=== PATIENT | female | born 1980 | race Caucasian/White ===

== ENCOUNTER 2020-07-31 14:00 | Inpatient (IN) | payer OTHER ==
[2020-07-31] MEDS ORDERED: ELECTROLYTE-148 SOLN 1,000 ML IV SCH (15:00)
[2020-07-31 16:14] LABS: BASO % 0.2 % (0-2.0); EOS % 0.4 % (0-4.5); HEMATOCRIT 34.5 % (32.4-45.2); HEMOGLOBIN 11.9 GM/dL (10.7-15.3); LYMPH % 15.4 % (8-40); MCH 30.1 pg (25.7-33.7); MCHC 34.4 g/dl (32.0-36.0); MEAN CELL VOLUME 87.5 fl (80-96); MEAN PLT VOLUME 9.2 fl (7.5-11.1); MONO % 4.7 % (3.8-10.2); NEUT % 79.3 % (42.8-82.8); PLATELET COUNT 122 K/MM3 (134-434); RBC 3.94 M/mm3 (3.60-5.2); RDW 14.2 % (11.6-15.6); WHITE BLOOD COUNT 12.1 K/mm3 (4.0-10.0)
[2020-07-31 16:21] VITALS: BMI 31.4
[2020-07-31 16:32] LABS: INR 1.04 (0.83-1.09); PROTHROMBIN TIME (PATIENT) 12.3 SEC (9.7-13.0)
[2020-07-31 16:35] LABS: ACTIVATED PTT 26.2 SECONDS (25.2-36.5)
[2020-07-31 16:43] LABS: BLOOD UREA NITROGEN 7.7 mg/dL (7-18); CALCIUM 8.6 mg/dL (8.5-10.1); CREATININE 0.5 mg/dL (0.55-1.3); POTASSIUM 3.8 mmol/L (3.5-5.1)
--- NOTE | 2020-07-31 16:51 | HP ---
Past Medical History - Primary Care Physician PCP:: Anthony Lawson - Admission Chief Complaint: painful UC History of Present Illness: 39 yo EDC 08/23/2020, EGA 36.4 weeks c/o painful UC since this morning Presented to LD , 3-4 cm. H/O PPROM with PTD at 36 weeks G2 - GDM on diet well controlled AMA - genetic consultation : Low risk History Source: Patient Limitations to Obtaining History: No Limitations - Past Medical History ...: 2 ...Para: 1 ...Term: 0 ...: 1 ...Spon : 0 ...Induced : 0 ...Living Children: 1 ...Multiple Gestation: 0 ...LMP: 11/17/19 ... Weeks Gestation by Dates: 36.5 ...EDC by Dates: 08/23/20 ...EDC by Sono: 08/23/20 - Past Surgical History Past Surgical History: Yes: None Hx Myomectomy: No Hx Transabdominal Cerclage: No - Smoking History Smoking history: Never smoked Have you smoked in the past 12 months: No - Alcohol/Substance Use Hx Alcohol Use: No History of Substance Use: reports: None - Social History Usual Living Arrangement: Yes: With Spouse History of Recent Travel: No Home Medications - Allergies Allergies/Adverse Reactions: Allergies Allergy/AdvReac Type Severity Reaction Status Date / Time No Known Allergies Allergy Verified 07/31/20 14:53 - Home Medications Home Medications: Ambulatory Orders Pnv No.95/Ferrous Fum/Folic AC [ Vitamin Tablet] 1 each PO DAILY 07/31/20 Valacyclovir HCl [Valtrex] 500 mg PO DAILY 07/31/20 Family Medical History Family Hx Diabetes: Father Review of Systems - Review of Systems Constitutional: reports: No Symptoms Eyes: reports: No Symptoms HENT: reports: No Symptoms Neck: reports: No Symptoms Cardiovascular: reports: No Symptoms Respiratory: reports: No Symptoms Gastrointestinal: reports: No Symptoms Genitourinary: reports: No Symptoms, Pain Breasts: reports: No Symptoms Reported Musculoskeletal: reports: No Symptoms Integumentary: reports: No Symptoms Neurological: reports: No Symptoms Endocrine: reports: No Symptoms Hematology/Lymphatic: reports: No Symptoms Psychiatric: reports: No Symptoms Physical Exam - Maternity Vital Signs: Vital Signs Temperature 98.1 F 07/31/20 14:00 Pulse Rate 77 07/31/20 16:00 Respiratory Rate 20 07/31/20 16:00 Blood Pressure 105/65 07/31/20 16:00 O2 Sat by Pulse Oximetry (%) Constitutional: Yes: Well Nourished, No Distress Eyes: Yes: WNL HENT: Yes: WNL Neck: Yes: WNL Cardiovascular: Yes: WNL Lungs: Clear to auscultation Breast(s): Yes: WNL - Abdominal Exam/OB Fundal Height: 38 Number of Fetuses: Single Presentation: Vertex Contractions: Yes Regularity: Regular Intensity: Moderate Monitor Mode: External Heart Rate Location: [facility] Category: I Accelerations: Uniform Decelerations: None - Vaginal Exam/OB Vaginal Bleeding: Yes, Light Dilatation (cm): 5 Effacement (%): 80 Amniotic Membrane Status: Intact Station: -1 - Physical Exam Musculoskeletal: Yes: WNL Extremities: Yes: WNL Edema: Yes Edema: LLE: 1+, RLE: 1+ Integumentary: Yes: WNL ...Motor Strength: WNL Psychiatric: Yes: WNL - Labs Lab Results: CBC, BMP 07/31/20 15:33 07/31/20 15:33 Hemorrhage Risk Assessment - Risk Factors High Risk Factors: Yes: Placenta previa, low lying Risk Score: 2 Risk Level: High Risk Problem List - Problems (1) Diet controlled gestational diabetes mellitus (GDM) Code(s): O24.410 - GESTATIONAL DIABETES MELLITUS IN , DIET CONTROLLED (2) AMA (advanced maternal age) multigravida 35+ Code(s): O09.529 - SUPERVISION OF ELDERLY MULTIGRAVIDA, UNSPECIFIED TRIMESTER (3) 36 weeks gestation of Code(s): Z3A.36 - 36 WEEKS GESTATION OF (4) Marginal placenta Code(s): O44.20 - PARTIAL PLACENTA PREVIA NOS OR WITHOUT HEMOR, UNSP TRIMESTER Assessment/Plan Admit to LD Anticipate
[2020-07-31] MEDS ORDERED: OXYTOCIN 30 UNITS in 0.9% NS 30 UNIT/500 ML INFUS.BAG IVPB SCH (17:00)
--- NOTE | 2020-07-31 19:47 | PN ---
Progress Note (short form) - Note Progress Note: 39 yo @ 36.5 weeks in latent phase of labor c/o painful UC and back pain VSS afebrile VE - 4 cm, 50%, -1vtx, IM EFM baseline 140 bpm, reactive, cat 1 TOCO UC irregular q 3-4 min A/P pitocin augmentation Close observation Problem List - Problems (1) Diet controlled gestational diabetes mellitus (GDM) Code(s): O24.410 - GESTATIONAL DIABETES MELLITUS IN , DIET CONTROLLED
[2020-07-31] MEDS ORDERED: BUTORPHANOL TARTRATE 1 MG/ML VIAL IVPB ONE (20:20)
[2020-07-31] MEDS ORDERED: PROMETHAZINE HCL 25 MG/1 ML VIAL IVPB ONE (20:20)
[2020-07-31] MEDS ORDERED: BUTORPHANOL TARTRATE 1 MG/ML VIAL ONE ×2 (20:21)
[2020-07-31] MEDS ORDERED: PROMETHAZINE HCL 25 MG/1 ML VIAL ONE (20:21)
[2020-07-31] MEDS ORDERED: ONDANSETRON 4 MG/2 ML VIAL IVPUSH PRN (22:31)
[2020-07-31] MEDS ORDERED: morphine SULFATE/PF 0.5 MG/ML (2cc Syringe - QUVA) ONE (22:38)
--- NOTE | 2020-07-31 22:38 | PN ---
Progress Note (short form) - Note Progress Note: 39 yo @ 36.5 weeks in active labor, received stadol/phenergan c/o painful UC and back pain VSS afebrile VE - 4- 5 cm, 80%, -1vtx, IM, left latero-posterior marginal placenta, clots present EFM baseline 130 bpm, reactive, cat 1 TOCO UC regular q 3 min A/P Active labor Marginal placenta previa Discussed at length placenta previa Cesarian delivery discussed; risks, benefits, alternatives well understood from pt and and signed the consent form Problem List - Problems (1) Diet controlled gestational diabetes mellitus (GDM) Code(s): O24.410 - GESTATIONAL DIABETES MELLITUS IN , DIET CONTROLLED
[2020-07-31] MEDS ORDERED: CITRIC ACID/SODIUM CITRATE 30 ML UNIT-DOSE CUP PO ONE (22:39)
[2020-07-31] MEDS ORDERED: ceFAZolin SODIUM 1 GM VIAL ONE (23:05)
[2020-07-31] MEDS ORDERED: SODIUM CHLORIDE 0.9% P/F 10 ML VIAL IJ ONE (23:05)
[2020-07-31] MEDS ORDERED: PHENYLEPHRINE HCL 10 MG/1 ML SINGLE DOSE VIAL ONE ×2 (23:06→23:07)
[2020-07-31] MEDS ORDERED: KETOROLAC TROMETHAMINE 30 MG/1 ML VIAL ONE (23:08)
[2020-07-31] MEDS ORDERED: OXYTOCIN 10 UNITS/ML VIAL ONE (23:10)
[2020-07-31] MEDS ORDERED: PROPOFOL 20 ML ONE (23:34)
--- NOTE | 2020-08-01 00:33 | OP ---
Operative Note - Note: Operative Date: 07/31/20 Pre-Operative Diagnosis: 39 yo @ 36.4 wks GDM on diet Marginal placenta previa Operation: LTCS via Pfannenstiel Incision. B Clements Findings: Baby girl born 7/9 Cord around the neck and left arm Cord gases and blood collected Placenta posterior, marginal Methergine, hemobete given B Clements suture apply - good hemostasis Post-Operative Diagnosis: Same as Pre-op Surgeon: Anthony Lawson Body Welder: Tyler Gonzalez Anesthesiologist/BRASS PLATER: Mor Valadez Anesthesia: Spinal Specimens Removed: placenta and membranes Estimated Blood Loss (mls): 800 Operative Report Dictated: No
[2020-08-01] MEDS ORDERED: METHYLERGONOVINE MALEATE 0.2 MG/1 ML AMP IM PRN (00:34)
[2020-08-01] MEDS ORDERED: ACETAMINOPHEN 1000 MG/100 ML VIAL (NON FORMULARY) IVPB PRN (00:37)
[2020-08-01] MEDS: SIMETHICONE 80 MG TAB.CHEW (FP) PO SCH ×6 (00:45→21:16)
[2020-08-01] MEDS ORDERED: OXYTOCIN 20 UNITS in 0.9% NS 20 UNIT/1,000 ML INFUS.BAG IV SCH (00:45)
[2020-08-01] MEDS ORDERED: BISACODYL 10 MG SUPP.RECT RC SCH (00:45)
[2020-08-01 02:06] LABS: CORD HCO3 18.1 mmHg (20-29); CORD PCO2 51.5 mmHg (30-78); CORD pH 7.163 (7.14-7.44)
[2020-08-01 02:09] LABS: CORD BASE EXCESS -6.4 mmol/L (0-2); CORD HCO3 20.9 mmHg (20-29); CORD pH 7.256 (7.14-7.44)
[2020-08-01] MEDS ORDERED: CARBOPROST TROMETHAMINE 250 MCG/ML AMPUL IM ONE (02:30)
[2020-08-01] MEDS: CEFAZOLIN 1 GM/D5W 1 GM/50 ML BAG IVPB SCH ×3 (03:33→17:47)
[2020-08-01] MEDS: ENOXAPARIN NA (PORCINE) 40 MG/0.4 ML DISP.SYRIN SQ SCH (11:31)
[2020-08-01] MEDS: MAGNESIUM HYDROX 2400MG/30ML ORAL SUSPENSION 30 ML CUP PO SCH (11:31)
--- NOTE | 2020-08-01 13:08 | PN ---
Post Progress Note Type of Delivery: Primary C/S Vital Signs: Vital Signs Temperature 98.7 F 08/01/20 09:41 Pulse Rate 78 08/01/20 09:41 Respiratory Rate 18 08/01/20 12:00 Blood Pressure 103/69 08/01/20 09:41 O2 Sat by Pulse Oximetry (%) 99 08/01/20 09:41 Breast Exam: Yes: Soft Uterus: Yes: Fundus Firm, Fundus below umbilicus Incision: Yes: Dressing dry and intact Abdomen/GI: Yes: Abdomen soft, Tender Lochia: Yes: Rubra Extremities: Yes: Calves non-tender Perineum: Yes: Intact - Labs Labs: CBC WBC 12.1 K/mm3 (4.0-10.0) H 07/31/20 15:33 RBC 3.94 M/mm3 (3.60-5.2) 07/31/20 15:33 Hgb 11.9 GM/dL (10.7-15.3) 07/31/20 15:33 Hct 34.5 % (32.4-45.2) 07/31/20 15:33 MCV 87.5 fl (80-96) 07/31/20 15:33 MCH 30.1 pg (25.7-33.7) 07/31/20 15:33 MCHC 34.4 g/dl (32.0-36.0) 07/31/20 15:33 RDW 14.2 % (11.6-15.6) 07/31/20 15:33 Plt Count 122 K/MM3 (134-434) L 07/31/20 15:33 MPV 9.2 fl (7.5-11.1) 07/31/20 15:33 Absolute Neuts (auto) 9.6 K/mm3 (1.5-8.0) H 07/31/20 15:33 Neutrophils % 79.3 % (42.8-82.8) 07/31/20 15:33 Lymphocytes % 15.4 % (8-40) 07/31/20 15:33 Monocytes % 4.7 % (3.8-10.2) 07/31/20 15:33 Eosinophils % 0.4 % (0-4.5) 07/31/20 15:33 Basophils % 0.2 % (0-2.0) 07/31/20 15:33 Nucleated RBC % 0 % (0-0) 07/31/20 15:33 Problem List - Problems (1) Diet controlled gestational diabetes mellitus (GDM) Code(s): O24.410 - GESTATIONAL DIABETES MELLITUS IN , DIET CONTROLLED (2) AMA (advanced maternal age) multigravida 35+ Code(s): O09.529 - SUPERVISION OF ELDERLY MULTIGRAVIDA, UNSPECIFIED TRIMESTER (3) 36 weeks gestation of Code(s): Z3A.36 - 36 WEEKS GESTATION OF (4) Marginal placenta Code(s): O44.20 - PARTIAL PLACENTA PREVIA NOS OR WITHOUT HEMOR, UNSP TRIMESTER Assessment/Plan Ambulate
--- NOTE | 2020-08-01 13:34 | PN ---
Progress Note (short form) - Note Progress Note: 39F s/p C/S under duramorph spinal. No new c/o. Vital Signs Temp 98.7 F 08/01/20 09:41 Pulse 78 08/01/20 09:41 Resp 18 08/01/20 12:00 BP 103/69 08/01/20 09:41 Pulse Ox 99 08/01/20 09:41 Intake & Output 07/31/20 08/01/20 08/01/20 23:59 11:59 23:59 Intake Total 2600 1550 Output Total 200 700 Balance 2400 850 Weight 195 lb Intake: IV 2500 1400 NORMAL SALINE+20 UNITS 1400 OXYTOCIN - 20 unit In 1, 000 ml @ 125 mls/hr IV ASDIR CHANTALE Rx#:[id number] Plasma-Lyte 148 - 1,000 2500 ml @ 125 mls/hr IV ASDIR CHANTALE Rx#:[id number] IVPB 100 50 Oral 100 Output: Urine 200 700 Martinez 200 700 Other: Voiding Method Indwelling Catheter Indwelling Catheter # Unmeasured Voids Void 2 Bowel Movement No Height 5 ft 6 in Body Mass Index (BMI) 31.4 Weight 6 lb 14 oz Length 18 in sitting in bed, NAD KULKARNI - taking PO. No nausea or pain at rest. - No anesthesia complications
[2020-08-01] MEDS: oxyCODONE HCL 5 MG TABLET PO PRN (21:16)
[2020-08-01] MEDS: ACETAMINOPHEN 325 MG TABLET (FP) PO PRN (21:17)
[2020-08-01] MEDS: SENNOSIDES/DOCUSATE COMBO (SENNA PLUS) TABLET (UD) PO SCH (23:00)
[2020-08-02] MEDS: SIMETHICONE 80 MG TAB.CHEW (FP) PO SCH ×7 (00:07→20:42)
[2020-08-02] MEDS: oxyCODONE HCL 5 MG TABLET PO PRN ×2 (08:08→20:42)
[2020-08-02] MEDS: ACETAMINOPHEN 325 MG TABLET (FP) PO PRN ×2 (08:09→15:29)
[2020-08-02 08:44] LABS: BASO % 0.3 % (0-2.0); EOS % 1.1 % (0-4.5); HEMATOCRIT 36.8 % (32.4-45.2); HEMOGLOBIN 12.6 GM/dL (10.7-15.3); LYMPH % 11.2 % (8-40); MCH 30.7 pg (25.7-33.7); MCHC 34.4 g/dl (32.0-36.0); MEAN CELL VOLUME 89.2 fl (80-96); MEAN PLT VOLUME 9.1 fl (7.5-11.1); MONO % 5.2 % (3.8-10.2); NEUT % 82.2 % (42.8-82.8); PLATELET COUNT 164 K/MM3 (134-434); RBC 4.12 M/mm3 (3.60-5.2); RDW 14.3 % (11.6-15.6); WHITE BLOOD COUNT 15.8 K/mm3 (4.0-10.0)
--- NOTE | 2020-08-02 08:49 | PN ---
Post Progress Note Post Day: 2 Type of Delivery: Primary C/S Vital Signs: Vital Signs Temperature 98.5 F 08/01/20 22:00 Pulse Rate 98 H 08/01/20 22:00 Respiratory Rate 18 08/01/20 22:00 Blood Pressure 102/71 08/01/20 22:00 O2 Sat by Pulse Oximetry (%) 97 08/01/20 17:53 Breast Exam: Yes: Soft Uterus: Yes: Fundus Firm, Fundus below umbilicus Incision: Yes: Dressing dry and intact, Sutures intact Abdomen/GI: Yes: Abdomen soft, Abdominal Distention Lochia: Yes: Rubra Lochia, amount: Small Extremities: Yes: Calves non-tender Activity: Ambulating - Labs Labs: CBC WBC 15.8 K/mm3 (4.0-10.0) H 08/02/20 08:10 RBC 4.12 M/mm3 (3.60-5.2) 08/02/20 08:10 Hgb 12.6 GM/dL (10.7-15.3) 08/02/20 08:10 Hct 36.8 % (32.4-45.2) 08/02/20 08:10 MCV 89.2 fl (80-96) 08/02/20 08:10 MCH 30.7 pg (25.7-33.7) 08/02/20 08:10 MCHC 34.4 g/dl (32.0-36.0) 08/02/20 08:10 RDW 14.3 % (11.6-15.6) 08/02/20 08:10 Plt Count 164 K/MM3 (134-434) D 08/02/20 08:10 MPV 9.1 fl (7.5-11.1) 08/02/20 08:10 Absolute Neuts (auto) 13.0 K/mm3 (1.5-8.0) H 08/02/20 08:10 Neutrophils % 82.2 % (42.8-82.8) 08/02/20 08:10 Lymphocytes % 11.2 % (8-40) D 08/02/20 08:10 Monocytes % 5.2 % (3.8-10.2) 08/02/20 08:10 Eosinophils % 1.1 % (0-4.5) D 08/02/20 08:10 Basophils % 0.3 % (0-2.0) 08/02/20 08:10 Nucleated RBC % 0 % (0-0) 08/02/20 08:10 Problem List - Problems (1) Diet controlled gestational diabetes mellitus (GDM) Code(s): O24.410 - GESTATIONAL DIABETES MELLITUS IN , DIET CONTROLLED (2) AMA (advanced maternal age) multigravida 35+ Code(s): O09.529 - SUPERVISION OF ELDERLY MULTIGRAVIDA, UNSPECIFIED TRIMESTER (3) 36 weeks gestation of Code(s): Z3A.36 - 36 WEEKS GESTATION OF (4) Marginal placenta Code(s): O44.20 - PARTIAL PLACENTA PREVIA NOS OR WITHOUT HEMOR, UNSP TRIMESTER Assessment/Plan Ambulate
[2020-08-02] MEDS: ENOXAPARIN NA (PORCINE) 40 MG/0.4 ML DISP.SYRIN SQ SCH (10:14)
[2020-08-02] MEDS: MAGNESIUM HYDROX 2400MG/30ML ORAL SUSPENSION 30 ML CUP PO SCH (10:14)
[2020-08-02] MEDS: SENNOSIDES/DOCUSATE COMBO (SENNA PLUS) TABLET (UD) PO SCH ×2 (20:42→22:03)
[2020-08-03] MEDS: SIMETHICONE 80 MG TAB.CHEW (FP) PO SCH ×4 (02:03→12:44)
[2020-08-03] MEDS: ACETAMINOPHEN 325 MG TABLET (FP) PO PRN (07:56)
[2020-08-03] MEDS: oxyCODONE HCL 5 MG TABLET PO PRN (07:56)
[2020-08-03] MEDS: ENOXAPARIN NA (PORCINE) 40 MG/0.4 ML DISP.SYRIN SQ SCH (10:06)
[2020-08-03] MEDS: MAGNESIUM HYDROX 2400MG/30ML ORAL SUSPENSION 30 ML CUP PO SCH (10:06)
[2020-08-03 10:16] VITALS: BP 125/72; PULSE 79; TEMP 98.4
--- NOTE | 2020-08-03 14:48 | PN ---
Post Progress Note Post Day: 3 Type of Delivery: Primary C/S Vital Signs: Vital Signs Temperature 98.4 F 08/03/20 10:00 Pulse Rate 79 08/03/20 10:00 Respiratory Rate 18 08/03/20 10:00 Blood Pressure 125/72 08/03/20 10:00 O2 Sat by Pulse Oximetry (%) 98 08/03/20 10:00 Breast Exam: Yes: Soft Uterus: Yes: Fundus Firm, Fundus below umbilicus, Non-tender Abdomen/GI: Yes: Abdomen soft Lochia: Yes: Rubra Lochia, amount: Small Extremities: Yes: Calves non-tender Activity: Ambulating - Labs Labs: CBC WBC 15.8 K/mm3 (4.0-10.0) H 08/02/20 08:10 RBC 4.12 M/mm3 (3.60-5.2) 08/02/20 08:10 Hgb 12.6 GM/dL (10.7-15.3) 08/02/20 08:10 Hct 36.8 % (32.4-45.2) 08/02/20 08:10 MCV 89.2 fl (80-96) 08/02/20 08:10 MCH 30.7 pg (25.7-33.7) 08/02/20 08:10 MCHC 34.4 g/dl (32.0-36.0) 08/02/20 08:10 RDW 14.3 % (11.6-15.6) 08/02/20 08:10 Plt Count 164 K/MM3 (134-434) D 08/02/20 08:10 MPV 9.1 fl (7.5-11.1) 08/02/20 08:10 Absolute Neuts (auto) 13.0 K/mm3 (1.5-8.0) H 08/02/20 08:10 Neutrophils % 82.2 % (42.8-82.8) 08/02/20 08:10 Lymphocytes % 11.2 % (8-40) D 08/02/20 08:10 Monocytes % 5.2 % (3.8-10.2) 08/02/20 08:10 Eosinophils % 1.1 % (0-4.5) D 08/02/20 08:10 Basophils % 0.3 % (0-2.0) 08/02/20 08:10 Nucleated RBC % 0 % (0-0) 08/02/20 08:10 Assessment/Plan S/P delivery, pod #3, stable Discharge home Follow up at clinic.
--- NOTE | 2020-08-07 13:03 | PATH ---
Surgical Pathology Report Patient Name: VALENTINA COVINGTON Med. Rec. #: [id number] /Age/Gender: 1980 (Age: 39) / F Account: [id number] Location: [facility] OBS/ELECTRONICS MECHANIC APPRENTICE Taken: 07/31/2020 Received: 08/01/2020 Reported: 08/07/2020 Physicians: Anthony Lawson M.D. Specimen(s) Received PLACENTA Clinical History , 36.5 weeks, advance maternal age, GDM-diet controlled Final Diagnosis PLACENTA: THIRD TRIMESTER PLACENTA WITH FOCAL PERIVILLOUS FIBRIN DEPOSITION. TRIVASCULAR CORD. MEMBRANES WITH NO DIAGNOSTIC ABNORMALITIES. Electronically Signed Carlos Eduardo Arteaga M.D. Gross Description The specimen is received fresh labeled placenta and is a 536 gram, 21.5 x 17.5 x 2.3 cm. placenta with attached membranes and umbilical cord. The attached membranes are sepulveda, translucent with focal opacities and insert marginally. The umbilical cord measures 11 cm. in length and averages 1.3 cm. in diameter. The cord inserts eccentrically, 6 cm. to the nearest margin. No true knots or strictures are identified. Cut surface of the umbilical cord reveals 3 vessels. The surface is fitzpatrick-blue with minimal fibrin deposition and appropriate caliber vessels. The maternal surface is red-brown with focal defects. Sectioning reveals red-brown, spongy parenchyma. No lesions are identified. Returned Goods Sorter sections are submitted in three cassettes as follows: 1- membrane rolls and umbilical cord; 2-3- full thickness sections of placenta. 08/05/2020 [facility]08/05/2020
--- NOTE | 2020-08-15 00:10 | OP ---
DATE OF OPERATION: 08/01/2020 PREOPERATIVE DIAGNOSIS: A 39-year-old G2, para 1 at 36.4 weeks on diet, marginal placenta previa. SURGERY PROCEDURE: Primary low transverse section via Pfannenstiel incision. POSTOPERATIVE DIAGNOSIS: A 39-year-old G2, para 1 at 36.4 weeks on diet, marginal placenta previa. Also hemorrhage. SURGEON: Steven Green MD. HOOP BENDING MACHINE OPERATOR: SONIA Robledo. ANESTHESIOLOGIST: Mor Valadez MD. ANESTHESIA: Spinal. SPECIMEN: Placenta membrane. ESTIMATED BLOOD LOSS: 800 mL. FINDINGS: Baby girl born 7 and 9, cord around the neck and the left arm. Placenta posterior, marginal. PPH. B-cohen suture applied, good hemostasis. DESCRIPTION OF PROCEDURE: The patient was taken to the operating room where spinal anesthesia was administered without complication. She was prepped and draped in the usual sterile fashion in dorsal supine position with the leftward tilt. A Pfannenstiel skin incision was made with the scalpel and carried through to the underlying layer of fascia with the Bovie. The fascia was incised in the midline, and the incision was extended laterally with Anderson scissors. The superior and inferior aspect of fascial incision was grasped with Eyal clamps, elevated, and the underlying rectus muscles dissected off bluntly. Rectus muscles were then in the midline. The peritoneum identified, tented up, and entered sharply with Metzenbaum scissors. The peritoneal incision was then extended laterally, superiorly and inferiorly with good visualization of the bladder. The bladder blade was then inserted, and the vesicouterine peritoneum identified, grasped with pickups, and entered sharply with Metzenbaum scissors. This incision was then extended laterally, and the bladder flap created digitally. The bladder blade was then reinserted, and the lower uterine segment incision transverse fashion with the scalpel. The uterine incision was then extended laterally with bandage scissors. The bladder blade was then removed, and the infant's head delivered atraumatically. The nose and mouth were suctioned and the cord clamped and cut. The was handed off to the awaiting mailroom messenger. Cord gases were collected. Placenta was then removed manually. The uterus exteriorized and cleared of all clots and debris. Uterine incision was repaired with 1-0 chromic in a running stitch. The incision was left open until making sure that good hemostasis was assured. There was bleeding from marginal low lying placenta previa. A B-cohen suture was applied in the uterus, and the hemostasis was assured. A 2nd layer of the same suture was placed to obtain excellent hemostasis. The bladder flap was repaired with 2-0 chromic in a running stitch, and the uterus returned to the abdomen. The gutters were cleared of all clots, and the peritoneum closed with 2-0 chromic. The fascia was reapproximated with 0 Vicryl in a running stitch, and the skin was closed with paulina. The patient tolerated the procedure well. Sponge, lap, needle counts were correct x2. The patient was taken to the recovery room in stable condition. STEVEN GREEN MD [id number]
== END 2020-08-03 12:50 | disposition home or self-care (01) | DRG 540 ==
LOC: JLDR 14:00 → J3W 08-01 02:03
PROVIDERS: ADMIT Obstetrics & Gynecology; ATTEND Obstetrics & Gynecology
PROC: 10D00Z1 Extraction of Products of Conception, Low, Open Approach (ICD-10-PCS; principal; 2020-07-31)
DX: O44.23 Partial placenta previa NOS or without hemorrhage, third trimester (principal); O60.14X0 Preterm labor third trimester with preterm delivery third trimester, not applicable or unspecified; O24.420 Gestational diabetes mellitus in childbirth, diet controlled; O72.1 Other immediate postpartum hemorrhage; O69.81X0 Labor and delivery complicated by cord around neck, without compression, not applicable or unspecified; O69.89X0 Labor and delivery complicated by other cord complications, not applicable or unspecified; Z37.0 Single live birth; Z3A.36 36 weeks gestation of pregnancy
CPT/HCPCS: 36415; 36600; 80048; 82803; 85025; 85610; 85730; 86780; 86850; 86900; 86901; 87389; 88307-TC; C9803; J0131; U0003